=== PATIENT | female | born 1960 | race Caucasian/White ===

== ENCOUNTER 2020-10-10 15:43 | Emergency (ER) | payer MEDICAID ==
[~2020-10-10] VITALS: Ht 147.3 cm; Wt 52.2 kg
[~2020-10-10 15:43] MED LIST: AMLO2.5T5 PO; BP MED PO; CALC500C PO; CELE200C PO; CYCL10TA50 PO; DOCU-193 PO; DULO30CA2 PO; ESCI10TA97 PO; ESOM40CA PO; FLEXERIL PO; FLUR15CA3 PO; INUL1TAB PO; KAVA200C PO; LAMO50TA3 PO; MELOTONIN PO; MODA200T27 PO; MULT-658 PO; NAPR220T77 PO; NAUSEA MED; OMEG1CAP48 PO; OMEP-110 PO; ONDA4TAB10 PO; PRAM0.5T5 PO; PRAM1.5T7 PO; PROP20TA PO; SUMA1TAB12 PO; UBID10CA7 PO
[2020-10-10 15:52] VITALS: BP 159/82
[2020-10-10] MEDS ORDERED: FLUORESCEIN OPHTHALMIC 1 MG STRIP ONE (16:47)
[2020-10-10] MEDS ORDERED: FLUORESCEIN OPHTHALMIC 1 MG STRIP EACHEYE ONE (17:00)
--- NOTE | 2020-10-12 09:31 | NUR ---
chart accessed for records request from Dr Kidd office.
== END 2020-10-10 17:53 | disposition home or self-care (01) ==
LOC: ED 17:35
DX: S05.02XA Injury of conjunctiva and corneal abrasion without foreign body, left eye, initial encounter (principal); Z87.891 Personal history of nicotine dependence; E11.9 Type 2 diabetes mellitus without complications; I10 Essential (primary) hypertension; K21.9 Gastro-esophageal reflux disease without esophagitis; Z90.49 Acquired absence of other specified parts of digestive tract; Z90.710 Acquired absence of both cervix and uterus; Z88.5 Allergy status to narcotic agent; Z88.6 Allergy status to analgesic agent; Z88.8 Allergy status to other drugs, medicaments and biological substances; X58.XXXA Exposure to other specified factors, initial encounter; Y93.89 Activity, other specified; Y92.89 Other specified places as the place of occurrence of the external cause; Y99.8 Other external cause status
CPT/HCPCS: 99283